=== PATIENT | female | born 1990 | race Two or more races ===

== ENCOUNTER 2017-09-23 02:02 | Emergency (ER) | payer MEDICAID ==
[~2017-09-23] VITALS: Ht 160 cm; Wt 81.6 kg
[2017-09-23 03:28] VITALS: BP 129/66
[2017-09-23] MEDS ORDERED: BACITRACIN TOP OINT 1 UD PKG TOP ONE (04:24)
[2017-09-23] MEDS ORDERED: cefTRIAXone SOD 1,000 MG VL ONE (04:25)
[2017-09-23] MEDS ORDERED: TETANUS IMMUNE GLOBULIN 250 UNIT/ML SYRG IM ONE (04:25)
[2017-09-23] MEDS ORDERED: BACITRACIN INJ 50000 UNIT VIAL TOP ONE (04:30)
[2017-09-23] MEDS ORDERED: TETANUS-DIPTH-ACEL PERTUSSIS 0.5ML SYRG IM ONE (04:30)
[2017-09-23] MEDS ORDERED: cefTRIAXone SOD 1,000 MG VL IM ONE (04:30)
== END 2017-09-23 04:37 | disposition home or self-care (01) ==
LOC: ER 02:05
DX: S02.5XXA Fracture of tooth (traumatic), initial encounter for closed fracture (principal); S01.511A Laceration without foreign body of lip, initial encounter; S01.21XA Laceration without foreign body of nose, initial encounter; S63.601A Unspecified sprain of right thumb, initial encounter; S00.83XA Contusion of other part of head, initial encounter; W01.0XXA Fall on same level from slipping, tripping and stumbling without subsequent striking against object, initial encounter; Y93.89 Activity, other specified; Y99.8 Other external cause status; Y92.89 Other specified places as the place of occurrence of the external cause
CPT/HCPCS: 12051; 70450; 70486; 73140; 90471; 96372; 99284; J0696; J1670

== ENCOUNTER 2019-01-10 16:28 | Emergency (ER) | payer SELFPAY ==
[~2019-01-10] VITALS: Ht 160 cm; Wt 87.1 kg
[2019-01-10 16:33] VITALS: BP 94/58
[2019-01-10 17:23] LABS: Basophils # (auto) 0 uL; Basophils % (auto) 0.1 % (0.0-2.0); Eosinophils # (auto) 0.1 uL; Lymphocytes # (auto) 1.5 uL; Mean Corpuscular Volume 79.2 fL (80.0-100.0); Monocytes # (auto) 0.6 uL; Platelet Count (auto) 146 10^3/uL (140-450)
[2019-01-10 17:27] LABS: Eosinophils % (auto) 0.8 % (0.0-7.0); Hematocrit 36.6 % (36.0-46.0); Lymphocytes % (auto) 14.8 % (10.0-50.0); Mean Corpuscular Hemoglobin 25.9 pg (28.0-32.0); Mean Corpuscular Hgb Conc. 32.7 g/dL (32.0-36.0); Monocytes % (auto) 5.9 % (0.0-12.0); Neutrophils # (auto) 8.1 uL; Neutrophils % (auto) 78.4 % (37.0-80.0); Red Blood Cells 4.63 10^6/uL (4.0-5.20); Red Cell Distribution Width 15.6 % (11.8-14.3); White Blood Cell 10.3 10^3/uL (4.4-10.8)
[2019-01-10 17:39] LABS: Albumin 2.8 g/dL (3.4-5.0); Calcium 8.7 mg/dL (8.5-10.1); Potassium 3.8 mmol/L (3.5-5.1)
[2019-01-10 17:42] LABS: BUN/Creatinine Ratio 14.3; Bilirubin, Total 0.7 mg/dL (0.2-1.0); Total Protein 7.2 g/dL (6.4-8.2)
== END 2019-01-10 19:59 | disposition left against medical advice (07) ==
LOC: ER 16:41
DX: O26.892 Other specified pregnancy related conditions, second trimester (principal); R10.30 Lower abdominal pain, unspecified; O21.8 Other vomiting complicating pregnancy; Z3A.16 16 weeks gestation of pregnancy; Z53.29 Procedure and treatment not carried out because of patient's decision for other reasons
CPT/HCPCS: 36415; 80053; 82150; 83605; 83690; 84702; 85025

== ENCOUNTER 2019-01-11 11:12 | Emergency (ER) | payer SELFPAY ==
[~2019-01-11] VITALS: Ht 160 cm; Wt 87.1 kg
[2019-01-11 11:17] VITALS: BP 128/59
[2019-01-11] MEDS ORDERED: ACETAMINOPHEN 500 MG TAB PO ONE (13:15)
== END 2019-01-11 13:23 | disposition home or self-care (01) ==
LOC: ER 11:12 → EDBD 11:12 → ER 13:23
DX: O99.612 Diseases of the digestive system complicating pregnancy, second trimester (principal); K80.20 Calculus of gallbladder without cholecystitis without obstruction; O23.42 Unspecified infection of urinary tract in pregnancy, second trimester; Z3A.16 16 weeks gestation of pregnancy
CPT/HCPCS: 76705; 76805

== ENCOUNTER 2019-01-20 12:46 | Emergency (ER) | payer MEDICAID ==
[~2019-01-20] VITALS: Ht 160 cm; Wt 87.1 kg
[2019-01-20 15:31] VITALS: BP 136/78
== END 2019-01-20 15:32 | disposition home or self-care (01) ==
LOC: ER 12:46
DX: O36.4XX0 Maternal care for intrauterine death, not applicable or unspecified (principal); Z3A.17 17 weeks gestation of pregnancy
CPT/HCPCS: 36415; 76805; 84702

== ENCOUNTER 2019-01-21 12:30 | Emergency (ER) | payer MEDICAID ==
[~2019-01-21] VITALS: Ht 160 cm; Wt 87.1 kg
[2019-01-21] MEDS ORDERED: SODIUM CHLORIDE 0.9% 1,000 ML IV ONE (18:30)
[2019-01-21 19:12] LABS: Basophils # (auto) 0 uL; Eosinophils # (auto) 0.2 uL; Hematocrit 36.8 % (36.0-46.0); Hemoglobin 12.1 g/dL (12.2-16.2); Mean Corpuscular Hemoglobin 26.3 pg (28.0-32.0); Monocytes # (auto) 0.7 uL; Neutrophils # (auto) 5.2 uL
[2019-01-21 19:13] LABS: Basophils % (auto) 0.1 % (0.0-2.0); Eosinophils % (auto) 2.7 % (0.0-7.0); Lymphocytes # (auto) 1.9 uL; Lymphocytes % (auto) 23.8 % (10.0-50.0); Mean Corpuscular Hgb Conc. 32.9 g/dL (32.0-36.0); Mean Corpuscular Volume 79.7 fL (80.0-100.0); Monocytes % (auto) 8.5 % (0.0-12.0); Neutrophils % (auto) 64.9 % (37.0-80.0); Platelet Count (auto) 132 10^3/uL (140-450); Red Blood Cells 4.62 10^6/uL (4.0-5.20); Red Cell Distribution Width 15.7 % (11.8-14.3)
[2019-01-21 19:27] LABS: Albumin 2.9 g/dL (3.4-5.0); Calcium 8.7 mg/dL (8.5-10.1); Potassium 4.2 mmol/L (3.5-5.1)
[2019-01-21 19:30] LABS: Bilirubin, Total 0.4 mg/dL (0.2-1.0)
[2019-01-21 21:17] LABS: Urine Amorphous Crystal FEW /hpf (None Seen); Urine Bacteria FEW /hpf (None Seen); Urine Blood Negative /uL (Negative); Urine Specific Gravity 1.017 (1.001-1.035); Urine WBC 29 /hpf (0 - 5)
[2019-01-21 21:34] VITALS: BP 124/96
== END 2019-01-21 22:01 | disposition home or self-care (01) ==
LOC: ER 12:30
DX: O02.1 Missed abortion (principal); O23.42 Unspecified infection of urinary tract in pregnancy, second trimester; Z3A.17 17 weeks gestation of pregnancy
CPT/HCPCS: 36415; 76805; 80053; 81001; 84702; 85025; 99284; J7030